=== PATIENT | male | born 1960 | race African-American/Black ===

== ENCOUNTER 2017-05-21 14:24 | Emergency (ER) | payer OTHER ==
[~2017-05-21] VITALS: Ht 182.9 cm; Wt 113.6 kg
[~2017-05-21 14:24] MED LIST: AMLODIPINE PO; ATENOLOL PO; HYDROCHLOROTHIAZIDE PO; LISI40TA4 PO; METF10002 PO
[2017-05-21 14:37] LABS: GLUCOSE,POINT OF CARE 244 MG/DL (70-110)
[2017-05-21] MEDS ORDERED: CLON-570 PO (14:37)
[2017-05-21 15:03] VITALS: BP 157/112
[2017-05-21] MEDS ORDERED: CefTRIAXone SODIUM 1 GM/VIAL IM ONE (15:15)
[2017-05-21] MEDS ORDERED: AZITHROMYCIN 250 MG TABLET PO ONE (15:15)
[2017-05-21] MEDS ORDERED: LIDOCAINE HCL/PF 1% 2 ML VIAL ONE (15:21)
[2017-05-21] MEDS ORDERED: LIDOCAINE HCL/PF 1% 2 ML VIAL IM ONE (15:30)
== END 2017-05-21 15:29 | disposition home or self-care (01) ==
LOC: EMS 14:24
DX: Z11.3 Encounter for screening for infections with a predominantly sexual mode of transmission (principal); E11.9 Type 2 diabetes mellitus without complications; I10 Essential (primary) hypertension; Z88.1 Allergy status to other antibiotic agents
CPT/HCPCS: 82962; 96372; 99283; J0696; J3490

== ENCOUNTER 2017-08-11 16:49 | Emergency (ER) | payer OTHER ==
[~2017-08-11] VITALS: Ht 182.9 cm; Wt 113.6 kg
[~2017-08-11 16:49] MED LIST changes: -AMLODIPINE PO; -ATENOLOL PO; +CLON-570 PO; -HYDROCHLOROTHIAZIDE PO
[2017-08-11 17:07] LABS: GLUCOSE,POINT OF CARE 286 MG/DL (70-110)
[2017-08-11] MEDS ORDERED: IBUPROFEN 800 MG TABLET PO ONE (19:00)
[2017-08-11] MEDS ORDERED: AZITHROMYCIN 250 MG TABLET PO ONE (20:30)
[2017-08-11] MEDS ORDERED: CefTRIAXone SODIUM 1 GM/VIAL IM ONE (20:30)
[2017-08-11 20:35] VITALS: BP 127/86
[2017-08-11] MEDS ORDERED: LIDOCAINE HCL 1% 10 ML VIAL INJ ONE (20:45)
== END 2017-08-11 20:50 | disposition home or self-care (01) ==
LOC: EMS 16:53
DX: K04.7 Periapical abscess without sinus (principal); Z11.3 Encounter for screening for infections with a predominantly sexual mode of transmission; E11.9 Type 2 diabetes mellitus without complications; I10 Essential (primary) hypertension; Z88.1 Allergy status to other antibiotic agents; Z79.899 Other long term (current) drug therapy
CPT/HCPCS: 82962; 87491; 87591; 96372; 99284; J0696; J3490

== ENCOUNTER 2021-02-21 10:30 | Emergency (ER) | payer OTHER ==
[~2021-02-21] VITALS: Ht 185.4 cm; Wt 118.2 kg
[~2021-02-21 10:30] MED LIST changes: -CLON-570 PO; +CLON0.1T2 PO; -LISI40TA4 PO; +LISI40TA9 PO; +METF-446 PO; -METF10002 PO
[2021-02-21 11:24] VITALS: BP 145/83
[2021-02-21] MEDS ORDERED: CefTRIAXone SODIUM 1 GM/VIAL IM ONE (11:30)
[2021-02-21] MEDS ORDERED: LIDOCAINE/PF 1% 2 ML VIAL IM ONE (11:30)
[2021-02-21] MEDS ORDERED: AZITHROMYCIN 500 MG TABLET PO ONE (11:30)
== END 2021-02-21 11:46 | disposition home or self-care (01) ==
LOC: EMS 10:38
DX: Z71.1 Person with feared health complaint in whom no diagnosis is made (principal)
CPT/HCPCS: 96372; 99283; J0696; J3490; Q9967